=== PATIENT | male | born 1965 | race African-American/Black ===

== ENCOUNTER 2017-08-15 08:48 | Inpatient (IN) | payer MEDICAID ==
[~2017-08-15] VITALS: Ht 177.8 cm; Wt 129.3 kg
[~2017-08-15 08:48] MED LIST: AMLO5TAB88 PO; ASPI-1159 PO; CARV25TA47 PO; FURO40TA5 PO; HYDR100T26 PO
[2017-08-15 09:26] LABS: BASOPHILS % 0.5 % (0.0-2.0); EOSINOPHILS % 1.7 % (0.0-5.0); HEMATOCRIT. 40.8 % (42.0-52.0); HEMOGLOBIN. 13.3 g/dL (14.0-18.0); LYMPHOCYTES % 16.9 % (20.0-50.0); MEAN CORPUSCULAR HEMOGLOBIN 26.6 pg (28.0-32.0); MEAN CORPUSCULAR VOLUME 81.9 fL (80.0-94.0); MEAN PLATELET VOLUME 8.4 fl (7.4-10.4); MONOCYTES % 5.3 % (2.0-8.0); NEUTROPHILS % 75.6 % (40.0-76.0); PLATELET 255 x1000/uL (130-400); RED BLOOD CELL COUNT 4.98 mill/uL (4.7-6.1); RED CELL DISTRIBUTION WIDTH 17.4 % (11.6-14.6)
[2017-08-15 09:31] LABS: PROTHROMBIN TIME 10.7 sec (9.4-11.6)
[2017-08-15 09:52] LABS: CARBON DIOXIDE 29 mEq/L (21-32); CHLORIDE 104 mEq/L (98-107); TROPONIN I < 0.02 ng/mL (0.00-0.04)
[2017-08-15] MEDS ORDERED: POTASSIUM CHLORIDE 20MEQ TABLET SR PO ONE (10:00)
[2017-08-15] MEDS ORDERED: ASPIRIN 81MG TABLET PO ONE (10:00)
[2017-08-15] MEDS ORDERED: FUROSEMIDE 40MG/4ML VIAL IV ONE (10:00)
[2017-08-15] MEDS ORDERED: NA PHOS,M-B/NA PHOS,DI-BA ENEMA 118ML PR PRN (10:45)
[2017-08-15] MEDS ORDERED: DOCUSATE SODIUM 100MG CAPSULE PO PRN (10:45)
[2017-08-15] MEDS ORDERED: MORPHINE SULFATE 4 MG/ML CPJ (NOT FOR IM USE) IV PRN (10:45)
[2017-08-15] MEDS ORDERED: HYDROCODONE/ACETAMINOPHEN 5/325MG TABLET PO PRN (10:45)
[2017-08-15] MEDS ORDERED: ACETAMINOPHEN 325MG TABLET PO PRN (10:45)
[2017-08-15] MEDS ORDERED: ONDANSETRON HCL 4MG/2ML VIAL IV PRN (10:45)
[2017-08-15] MEDS ORDERED: GUAIFENESIN 200MG/10ML SUGAR FREE UDC PO PRN (10:45)
[2017-08-15] MEDS ORDERED: MAGNESIUM/ALUMINUM HYDROXIDE/SIMETHICONE 30ML UDC PO PRN (10:45)
[2017-08-15] MEDS ORDERED: DIPHENHYDRAMINE 50MG/ML VIAL IV PRN (10:45)
[2017-08-15] MEDS: CLONIDINE 0.1MG TABLET PO PRN (12:32)
[2017-08-15] MEDS ORDERED: CLONIDINE 0.1MG TABLET ONE (12:36)
[2017-08-15] MEDS ORDERED: CARVEDILOL 25MG TABLET PO NR (17:34)
[2017-08-15] MEDS: LOSARTAN POTASSIUM 50 MG TABLET PO SCH (17:45)
[2017-08-15] MEDS: HYDRALAZINE HCL 100MG TABLET PO SCH ×2 (17:45→22:12)
[2017-08-15] MEDS: POTASSIUM CHLORIDE 20MEQ TABLET SR PO SCH (18:22)
[2017-08-15 20:15] VITALS: BP 137/83
[2017-08-15] MEDS ORDERED: ENOXAPARIN 40MG/0.4ML SYR SUBCUT SCH (21:00)
[2017-08-15] MEDS ORDERED: LORAZEPAM 2MG/ML CPJ IV PRN (21:00)
[2017-08-15 21:46] VITALS: BP 137/83
[2017-08-15] MEDS: ENOXAPARIN 30MG/0.3ML SYR SUBCUT SCH (22:12)
[2017-08-15] MEDS: FUROSEMIDE 40MG/4ML VIAL IV SCH (22:12)
[2017-08-16] VITALS (7 sets, daily range): BP systolic 144–185; BP diastolic 86–112
[2017-08-16] MEDS: HYDRALAZINE HCL 100MG TABLET PO SCH ×3 (05:30→22:09)
[2017-08-16 07:29] LABS: BASOPHILS % 0.9 % (0.0-2.0); EOSINOPHILS % 2.1 % (0.0-5.0); HEMOGLOBIN. 13.2 g/dL (14.0-18.0); LYMPHOCYTES % 24.6 % (20.0-50.0); MEAN CORPUSCULAR HEMOGLOBIN 26.7 pg (28.0-32.0); MEAN CORPUSCULAR VOLUME 82.7 fL (80.0-94.0); MEAN PLATELET VOLUME 8.6 fl (7.4-10.4); MONOCYTES % 7.5 % (2.0-8.0); NEUTROPHILS % 64.9 % (40.0-76.0); PLATELET 255 x1000/uL (130-400); RED BLOOD CELL COUNT 4.96 mill/uL (4.7-6.1); RED CELL DISTRIBUTION WIDTH 17.3 % (11.6-14.6)
[2017-08-16 08:46] LABS: CARBON DIOXIDE 29 mEq/L (21-32); CHLORIDE 101 mEq/L (98-107); HDL CHOLESTEROL 47 mg/dL (40-59); LDL CHOLESTEROL 170 mg/dL (5-100); T4 FREE 1.18 ng/dL (0.76-1.46)
[2017-08-16] MEDS ORDERED: FUROSEMIDE 40MG/4ML VIAL IV SCH (09:00)
[2017-08-16] MEDS: FUROSEMIDE 40MG/4ML VIAL IV SCH ×2 (09:09→18:14)
[2017-08-16] MEDS: LOSARTAN POTASSIUM 50 MG TABLET PO SCH (09:14)
[2017-08-16] MEDS: POTASSIUM CHLORIDE 20MEQ TABLET SR PO SCH (09:14)
[2017-08-16] MEDS: ENOXAPARIN 30MG/0.3ML SYR SUBCUT SCH ×2 (09:14→20:51)
[2017-08-16] MEDS: ASPIRIN 81MG EC TABLET PO SCH (09:14)
[2017-08-16] MEDS ORDERED: POTASSIUM CHLORIDE 20MEQ TABLET SR PO NR (12:45)
[2017-08-16 14:38] LABS: *AMPHETAMINES SCREEN URINE NEGATIVE (NEGATIVE); *BARBITURATES SCREEN URINE NEGATIVE (NEGATIVE); *BENZODIAZEPINES SCREEN URINE NEGATIVE (NEGATIVE); *COCAINE SCREEN URINE NEGATIVE (NEGATIVE); CANNABINOID URINE SCREEN NEGATIVE (NEGATIVE); METHADONE URINE SCREEN NEGATIVE (NEGATIVE); OPIATES URINE SCREEN NEGATIVE (NEGATIVE); PHENCYCLIDINE URINE SCREEN NEGATIVE (NEGATIVE)
[2017-08-16] MEDS: IPRATROPIUM/ALBUTEROL 0.5-3(2.5)MG/3ML NEB INH PRN (14:42)
[2017-08-16] MEDS: CLONIDINE 0.1MG TABLET PO PRN ×2 (14:42→20:50)
[2017-08-16] MEDS ORDERED: ATORVASTATIN CALCIUM 40MG TABLET PO SCH (21:00)
[2017-08-17 00:07] VITALS: BP 132/84
[2017-08-17 04:00] VITALS: BP 162/96
[2017-08-17] MEDS: HYDRALAZINE HCL 100MG TABLET PO SCH (05:37)
[2017-08-17] MEDS: IPRATROPIUM/ALBUTEROL 0.5-3(2.5)MG/3ML NEB INH PRN (05:51)
[2017-08-17 07:02] LABS: BASOPHILS % 0.5 % (0.0-2.0); EOSINOPHILS % 1.8 % (0.0-5.0); HEMATOCRIT. 40.5 % (42.0-52.0); HEMOGLOBIN. 13.3 g/dL (14.0-18.0); LYMPHOCYTES % 27.5 % (20.0-50.0); MEAN CORPUSCULAR VOLUME 82.1 fL (80.0-94.0); MONOCYTES % 8.8 % (2.0-8.0); NEUTROPHILS % 61.4 % (40.0-76.0); PLATELET 262 x1000/uL (130-400); RED BLOOD CELL COUNT 4.93 mill/uL (4.7-6.1); RED CELL DISTRIBUTION WIDTH 17.5 % (11.6-14.6)
[2017-08-17 08:00] VITALS: BP 158/102
[2017-08-17 08:08] LABS: CARBON DIOXIDE 30 mEq/L (21-32); CHLORIDE 101 mEq/L (98-107)
[2017-08-17] MEDS: LOSARTAN POTASSIUM 50 MG TABLET PO SCH (08:32)
[2017-08-17] MEDS: ASPIRIN 81MG EC TABLET PO SCH (08:32)
[2017-08-17] MEDS: ENOXAPARIN 30MG/0.3ML SYR SUBCUT SCH (08:33)
[2017-08-17] MEDS: POTASSIUM CHLORIDE 20MEQ TABLET SR PO SCH (08:36)
[2017-08-17] MEDS: FUROSEMIDE 40MG/4ML VIAL IV SCH (09:14)
== END 2017-08-17 10:55 | disposition home or self-care (01) | DRG 133 ==
LOC: ER 08:48 → 7WST 10:30 → ENRESERV 17:23
PROVIDERS: ADMIT Internal Medicine; ATTEND Internal Medicine
DX: J96.00 Acute respiratory failure, unspecified whether with hypoxia or hypercapnia (principal); I50.43 Acute on chronic combined systolic (congestive) and diastolic (congestive) heart failure; E11.65 Type 2 diabetes mellitus with hyperglycemia; E66.2 Morbid (severe) obesity with alveolar hypoventilation; I11.0 Hypertensive heart disease with heart failure; E87.6 Hypokalemia; D64.9 Anemia, unspecified; E78.5 Hyperlipidemia, unspecified; F17.210 Nicotine dependence, cigarettes, uncomplicated; F41.9 Anxiety disorder, unspecified; G47.33 Obstructive sleep apnea (adult) (pediatric); I25.10 Atherosclerotic heart disease of native coronary artery without angina pectoris; F32.9 Major depressive disorder, single episode, unspecified; I25.2 Old myocardial infarction; Z79.82 Long term (current) use of aspirin; Z82.49 Family history of ischemic heart disease and other diseases of the circulatory system; Z91.19 Patient's noncompliance with other medical treatment and regimen; Z86.73 Personal history of transient ischemic attack (TIA), and cerebral infarction without residual deficits; Z79.899 Other long term (current) drug therapy; Z99.81 Dependence on supplemental oxygen; Z68.41 Body mass index [BMI] 40.0-44.9, adult
CPT/HCPCS: 36415; 71045; 80048; 80053; 80061; 80305; 83036; 83735; 83880; 84439; 84443; 84484; 85025; 85610; 93005; 93306; 94640; 94660; 96374; 99285; J1650; J1940; J2060; J7620

== ENCOUNTER 2018-02-13 11:33 | Emergency (ER) | payer MEDICAID ==
[~2018-02-13] VITALS: Ht 172.7 cm; Wt 146.0 kg
[~2018-02-13 11:33] MED LIST changes: -AMLO5TAB88 PO; -FURO40TA5 PO
[2018-02-13] MEDS ORDERED: FURO80TA87 PO (11:56)
[2018-02-13] MEDS ORDERED: AMLO10TA80 PO (11:56)
[2018-02-13 13:08] LABS: BASOPHILS % 0.9 % (0.0-2.0); EOSINOPHILS % 2.4 % (0.0-5.0); HEMATOCRIT. 39.4 % (42.0-52.0); LYMPHOCYTES % 22.8 % (20.0-50.0); MEAN CORPUSCULAR HEMOGLOBIN 27.7 pg (28.0-32.0); MEAN PLATELET VOLUME 8.1 fl (7.4-10.4); MONOCYTES % 7.7 % (2.0-8.0); NEUTROPHILS % 66.2 % (40.0-76.0); PLATELET 287 x1000/uL (130-400); RED BLOOD CELL COUNT 4.69 mill/uL (4.7-6.1); RED CELL DISTRIBUTION WIDTH 17.7 % (11.6-14.6)
[2018-02-13 13:12] LABS: CHLORIDE 103 mEq/L (98-107)
[2018-02-13 13:15] LABS: PROTHROMBIN TIME 10.5 sec (9.4-11.6)
[2018-02-13] MEDS ORDERED: KCL 20MEQ/100ML PREMIX 100 ML IV SCH (14:00)
[2018-02-13] MEDS ORDERED: POTASSIUM CHLORIDE 20MEQ TABLET SR PO ONE (14:00)
[2018-02-13 14:52] LABS: CLARITY URINE CLOUDY (CLEAR); COLOR URINE YELLOW (YELLOW); KETONES URINE NEGATIVE (NEGATIVE); LEUKOCYTE ESTERASE URINE NEGATIVE (NEGATIVE); NITRITE URINE NEGATIVE (NEGATIVE); OCCULT BLOOD URINE NEGATIVE (NEGATIVE); PROTEIN URINE NEGATIVE (NEGATIVE)
[2018-02-13 17:28] LABS: CHLORIDE 105 mEq/L (98-107)
[2018-02-13 19:09] VITALS: BP 148/90
== END 2018-02-13 19:15 | disposition home or self-care (01) ==
LOC: ER 11:33
DX: I11.0 Hypertensive heart disease with heart failure (principal); I50.9 Heart failure, unspecified; E87.6 Hypokalemia; E78.00 Pure hypercholesterolemia, unspecified; I25.2 Old myocardial infarction; F17.200 Nicotine dependence, unspecified, uncomplicated; Z79.82 Long term (current) use of aspirin
CPT/HCPCS: 36415; 71045; 80048; 80053; 81003; 83880; 85025; 85610; 96365; 96366; 99285; J3480

== ENCOUNTER 2018-07-18 07:54 | Inpatient (IN) | payer MEDICAID, OTHER ==
[~2018-07-18] VITALS: Ht 172.7 cm; Wt 145.2 kg
[~2018-07-18 07:54] MED LIST changes: +AMLO10TA80 MT; -CARV25TA47 PO; +HYDR-4135 MT; -HYDR100T26 PO
[2018-07-18] MEDS ORDERED: IPRATROPIUM BROMIDE (0.02%) 0.5MG/2.5ML NEB HHN STA (08:00)
[2018-07-18] MEDS ORDERED: MAGNESIUM 2 G PREMIX 50 ML IV ONE (08:00)
[2018-07-18] MEDS ORDERED: NITROGLYCERIN OINT 1GM/INCH UDPKT TD ONE (08:00)
[2018-07-18] MEDS ORDERED: METHYLPREDNISOLONE SOD SUCC 125 MG/2 ML VIAL IV STA (08:00)
[2018-07-18] MEDS: ALBUTEROL (0.083%) 2.5MG/3ML NEB HHN SCH ×3 (08:10→09:15)
[2018-07-18 09:17] LABS: CHLORIDE 101 mEq/L (98-107)
[2018-07-18 09:31] LABS: PROTHROMBIN TIME 10.3 sec (9.1-11.1)
[2018-07-18 09:45] LABS: BASOPHILS % 0.3 % (0.0-2.0); EOSINOPHILS % 1.5 % (0.0-5.0); HEMATOCRIT. 39.9 % (42.0-52.0); HEMOGLOBIN. 12.8 g/dL (14.0-18.0); LYMPHOCYTES % 11.9 % (20.0-50.0); MEAN CORPUSCULAR HEMOGLOBIN 26.8 pg (28.0-32.0); MEAN CORPUSCULAR VOLUME 83.8 fL (80.0-94.0); MEAN PLATELET VOLUME 9.3 fl (7.4-10.4); MONOCYTES % 5.6 % (2.0-8.0); NEUTROPHILS % 80.7 % (40.0-76.0); PLATELET 249 x1000/uL (130-400); RED BLOOD CELL COUNT 4.77 mill/uL (4.7-6.1); RED CELL DISTRIBUTION WIDTH 18.3 % (11.6-14.6)
[2018-07-18] MEDS ORDERED: POTASSIUM CHLORIDE 20MEQ TABLET SR PO ONE (09:45)
[2018-07-18] MEDS ORDERED: DEXTROSE 50% WATER 50ML SYRINGE IV PRN (10:30)
[2018-07-18 12:57] VITALS: BP 156/96
[2018-07-18] MEDS: INSULIN LISPRO 100 UNITS/ML SUBCUT SCH ×3 (13:04→21:51)
[2018-07-18] MEDS ORDERED: CLON0.1T PO (13:24)
[2018-07-18] MEDS ORDERED: POTA99TA4 PO (13:25)
[2018-07-18] MEDS ORDERED: CARV3.1242 PO (13:25)
[2018-07-18] MEDS ORDERED: FURO-151 PO (13:26)
[2018-07-18] MEDS ORDERED: AZITHROMYCIN 500 MG TABLET PO NR (13:30)
[2018-07-18] MEDS: BLOOD SUGAR DIAGNOSTIC STRIP TEST SCH ×3 (13:32→21:42)
[2018-07-18] MEDS: FUROSEMIDE 40MG/4ML VIAL IVP SCH (13:55)
[2018-07-18 14:00] VITALS: BP 146/75
[2018-07-18] MEDS: CLONIDINE 0.1MG TABLET PO SCH ×2 (14:45→21:43)
[2018-07-18] MEDS: BUDESONIDE 0.5MG/2ML NEB HHN SCH ×2 (15:15→20:18)
[2018-07-18] MEDS: IPRATROPIUM/ALBUTEROL 0.5-3(2.5)MG/3ML NEB HHN PRN (15:15)
[2018-07-18 16:00] VITALS: BP 148/71
[2018-07-18 16:48] LABS: CLARITY URINE CLEAR (CLEAR); COLOR URINE YELLOW (YELLOW); KETONES URINE NEGATIVE (NEGATIVE); LEUKOCYTE ESTERASE URINE NEGATIVE (NEGATIVE); NITRITE URINE NEGATIVE (NEGATIVE); OCCULT BLOOD URINE NEGATIVE (NEGATIVE); PH URINE 5.5 (4.5-8.0); PROTEIN URINE 3+ (NEGATIVE); SPECIFIC GRAVITY URINE 1.025 (1.005-1.030); UROBILINOGEN URINE 0.2 E.U./dL (0.2-1.0)
[2018-07-18 17:28] LABS: *AMPHETAMINES SCREEN URINE NEGATIVE (NEGATIVE); *BARBITURATES SCREEN URINE NEGATIVE (NEGATIVE); *BENZODIAZEPINES SCREEN URINE NEGATIVE (NEGATIVE); *COCAINE SCREEN URINE NEGATIVE (NEGATIVE); METHADONE URINE SCREEN NEGATIVE (NEGATIVE); OPIATES URINE SCREEN NEGATIVE (NEGATIVE)
[2018-07-18 17:29] LABS: CANNABINOID URINE SCREEN PRESUMTIVE POSITIVE (NEGATIVE); PHENCYCLIDINE URINE SCREEN NEGATIVE (NEGATIVE)
[2018-07-18 18:00] VITALS: BP 133/78
[2018-07-18 20:00] VITALS: BP 138/76
[2018-07-18] MEDS: ENOXAPARIN 30MG/0.3ML SYR SUBCUT SCH (21:43)
[2018-07-18] MEDS: HYDRALAZINE HCL 50MG TABLET PO SCH (21:43)
[2018-07-18] MEDS: AMLODIPINE 2.5MG TABLET PO SCH (21:44)
[2018-07-18 22:00] VITALS: BP 129/79
[2018-07-19] VITALS (12 sets, daily range): BP systolic 127–168; BP diastolic 74–106
[2018-07-19] MEDS: CLONIDINE 0.1MG TABLET PO SCH ×3 (05:46→21:05)
[2018-07-19] MEDS: HYDRALAZINE HCL 50MG TABLET PO SCH ×3 (05:47→21:05)
[2018-07-19 06:08] LABS: CHLORIDE 103 mEq/L (98-107)
[2018-07-19 06:21] LABS: BASOPHILS % 0.1 % (0.0-2.0); HEMATOCRIT. 38.2 % (42.0-52.0); HEMOGLOBIN. 12.3 g/dL (14.0-18.0); LYMPHOCYTES % 10.1 % (20.0-50.0); MEAN CORPUSCULAR HEMOGLOBIN 26.8 pg (28.0-32.0); MEAN PLATELET VOLUME 9.6 fl (7.4-10.4); MONOCYTES % 6.2 % (2.0-8.0); NEUTROPHILS % 83.6 % (40.0-76.0); PLATELET 238 x1000/uL (130-400); RED CELL DISTRIBUTION WIDTH 18.6 % (11.6-14.6)
[2018-07-19] MEDS: BLOOD SUGAR DIAGNOSTIC STRIP TEST SCH ×4 (07:32→21:06)
[2018-07-19] MEDS: INSULIN LISPRO 100 UNITS/ML SUBCUT SCH ×4 (07:49→21:00)
[2018-07-19] MEDS: AZITHROMYCIN 250 MG TABLET PO SCH (08:21)
[2018-07-19] MEDS: AMLODIPINE 2.5MG TABLET PO SCH ×2 (08:21→21:05)
[2018-07-19] MEDS: FUROSEMIDE 40MG/4ML VIAL IVP SCH (08:21)
[2018-07-19] MEDS: ENOXAPARIN 30MG/0.3ML SYR SUBCUT SCH (08:21)
[2018-07-19] MEDS: BUDESONIDE 0.5MG/2ML NEB HHN SCH ×2 (08:39→21:37)
[2018-07-19] MEDS: IPRATROPIUM/ALBUTEROL 0.5-3(2.5)MG/3ML NEB HHN PRN ×3 (08:39→21:38)
[2018-07-19] MEDS ORDERED: POTASSIUM CHLORIDE 20MEQ TABLET SR PO NR (11:45)
[2018-07-19] MEDS ORDERED: BENZONATATE 100MG CAPSULE PO PRN (17:00)
[2018-07-19] MEDS: ENOXAPARIN 40MG/0.4ML SYR SUBCUT SCH (21:04)
[2018-07-20] VITALS (11 sets, daily range): BP systolic 133–166; BP diastolic 68–110
[2018-07-20] MEDS: IPRATROPIUM/ALBUTEROL 0.5-3(2.5)MG/3ML NEB HHN PRN ×4 (05:41→16:29)
[2018-07-20] MEDS: CLONIDINE 0.1MG TABLET PO SCH ×2 (05:52→14:00)
[2018-07-20] MEDS: HYDRALAZINE HCL 50MG TABLET PO SCH ×2 (05:52→14:00)
[2018-07-20] MEDS: BLOOD SUGAR DIAGNOSTIC STRIP TEST SCH ×2 (07:30→12:30)
[2018-07-20] MEDS: INSULIN LISPRO 100 UNITS/ML SUBCUT SCH ×2 (08:00→13:00)
[2018-07-20] MEDS: BUDESONIDE 0.5MG/2ML NEB HHN SCH (08:16)
[2018-07-20] MEDS: FUROSEMIDE 40MG/4ML VIAL IVP SCH (09:00)
[2018-07-20] MEDS: AZITHROMYCIN 250 MG TABLET PO SCH (09:00)
[2018-07-20] MEDS: AMLODIPINE 2.5MG TABLET PO SCH (09:01)
[2018-07-20] MEDS: ENOXAPARIN 40MG/0.4ML SYR SUBCUT SCH (09:02)
[2018-07-20 09:56] LABS: BASOPHILS % 0.3 % (0.0-2.0); EOSINOPHILS % 0.3 % (0.0-5.0); HEMOGLOBIN. 13.4 g/dL (14.0-18.0); LYMPHOCYTES % 13.7 % (20.0-50.0); MEAN CORPUSCULAR HEMOGLOBIN 27.1 pg (28.0-32.0); MEAN CORPUSCULAR VOLUME 82.9 fL (80.0-94.0); MEAN PLATELET VOLUME 9.3 fl (7.4-10.4); MONOCYTES % 9.1 % (2.0-8.0); NEUTROPHILS % 76.6 % (40.0-76.0); PLATELET 239 x1000/uL (130-400); RED BLOOD CELL COUNT 4.94 mill/uL (4.7-6.1)
[2018-07-20 10:09] LABS: CHLORIDE 101 mEq/L (98-107)
== END 2018-07-20 18:30 | disposition home or self-care (01) | DRG 469 ==
LOC: ER 08:06 → 5EST 09:46 → EDBEDREQ 09:49 → ENRESERV 10:04
PROVIDERS: ADMIT Internal Medicine; ATTEND Internal Medicine
PROC: 5A09357 Assistance with Respiratory Ventilation, Less than 24 Consecutive Hours, Continuous Positive Airway Pressure (ICD-10-PCS; principal; 2018-07-18)
PROC: 5A09357 Assistance with Respiratory Ventilation, Less than 24 Consecutive Hours, Continuous Positive Airway Pressure (ICD-10-PCS; 2018-07-19)
PROC: 5A09357 Assistance with Respiratory Ventilation, Less than 24 Consecutive Hours, Continuous Positive Airway Pressure (ICD-10-PCS; 2018-07-20)
DX: N17.9 Acute kidney failure, unspecified (principal); J96.00 Acute respiratory failure, unspecified whether with hypoxia or hypercapnia; I50.43 Acute on chronic combined systolic (congestive) and diastolic (congestive) heart failure; E44.0 Moderate protein-calorie malnutrition; E87.2 Acidosis; J44.1 Chronic obstructive pulmonary disease with (acute) exacerbation; E11.9 Type 2 diabetes mellitus without complications; D64.9 Anemia, unspecified; I11.0 Hypertensive heart disease with heart failure; Z68.42 Body mass index [BMI] 45.0-49.9, adult; E87.6 Hypokalemia; E66.9 Obesity, unspecified; G47.33 Obstructive sleep apnea (adult) (pediatric); D72.829 Elevated white blood cell count, unspecified; I25.10 Atherosclerotic heart disease of native coronary artery without angina pectoris; F17.210 Nicotine dependence, cigarettes, uncomplicated; E78.5 Hyperlipidemia, unspecified; Z95.5 Presence of coronary angioplasty implant and graft; Z86.74 Personal history of sudden cardiac arrest; I25.2 Old myocardial infarction
CPT/HCPCS: 36415; 71045; 80048; 80305; 82962; 83605; 83880; 84484; 87070; 87077; 87186; 87804; 93005; 94640; 94660; 96374; 99285; J1650; J1815; J1940; J2930; J3475; J7050; J7611; J7620; J7626

== ENCOUNTER 2018-12-12 00:55 | Inpatient (IN) | payer MEDICAID ==
[~2018-12-12] VITALS: Ht 172.7 cm; Wt 144.7 kg
[~2018-12-12 00:55] MED LIST changes: +CLON0.1T PO; +FURO-151 PO
[2018-12-12] MEDS ORDERED: IPRATROPIUM BROMIDE (0.02%) 0.5MG/2.5ML NEB HHN STA (01:40)
[2018-12-12] MEDS ORDERED: ALBUTEROL (0.083%) 2.5MG/3ML NEB HHN STA (01:40)
[2018-12-12] MEDS ORDERED: PREDNISONE 20MG TABLET PO STA (01:40)
[2018-12-12 02:41] LABS: BASOPHILS % 0.7 % (0.0-2.0); EOSINOPHILS % 1.1 % (0.0-5.0); HEMATOCRIT. 40.1 % (42.0-52.0); HEMOGLOBIN. 13.1 g/dL (14.0-18.0); LYMPHOCYTES % 15.3 % (20.0-50.0); MEAN CORPUSCULAR HEMOGLOBIN 27.3 pg (28.0-32.0); MEAN CORPUSCULAR VOLUME 83.7 fL (80.0-94.0); MEAN PLATELET VOLUME 8.4 fl (7.4-10.4); MONOCYTES % 6.4 % (2.0-8.0); NEUTROPHILS % 76.5 % (40.0-76.0); PLATELET 261 x1000/uL (130-400); RED BLOOD CELL COUNT 4.79 mill/uL (4.7-6.1); RED CELL DISTRIBUTION WIDTH 19.6 % (11.6-14.6)
[2018-12-12 02:50] LABS: CHLORIDE 103 mEq/L (98-107)
[2018-12-12 08:00] VITALS: BP 131/82
[2018-12-12 08:40] VITALS: BP 160/92
[2018-12-12] MEDS ORDERED: CLONIDINE 0.1MG TABLET PO PRN (08:45)
[2018-12-12] MEDS ORDERED: GUAIFENESIN 200MG/10ML SUGAR FREE UDC PO PRN (08:45)
[2018-12-12] MEDS ORDERED: ENOXAPARIN 40MG/0.4ML SYR SUBCUT SCH (08:45)
[2018-12-12] MEDS ORDERED: MAGNESIUM/ALUMINUM HYDROXIDE/SIMETHICONE 30ML UDC PO PRN (08:45)
[2018-12-12] MEDS ORDERED: DIPHENHYDRAMINE 50MG/ML VIAL IV PRN (08:45)
[2018-12-12] MEDS ORDERED: DOCUSATE SODIUM 100MG CAPSULE PO PRN (08:45)
[2018-12-12] MEDS ORDERED: IPRATROPIUM/ALBUTEROL 0.5-3(2.5)MG/3ML NEB INH PRN (08:45)
[2018-12-12] MEDS ORDERED: ACETAMINOPHEN 325MG TABLET PO PRN (08:45)
[2018-12-12] MEDS ORDERED: HYDROCODONE/ACETAMINOPHEN 5/325MG TABLET PO PRN (08:45)
[2018-12-12] MEDS ORDERED: ONDANSETRON HCL 4MG/2ML INJ IV PRN (08:45)
[2018-12-12] MEDS ORDERED: POTASSIUM CHLORIDE 20MEQ TABLET SR PO SCH (09:15)
[2018-12-12] MEDS: ENOXAPARIN 40MG/0.4ML SYR SUBCUT SCH ×2 (09:35→20:09)
[2018-12-12] MEDS: LOSARTAN POTASSIUM 50 MG TABLET PO SCH (11:47)
[2018-12-12 12:00] VITALS: BP 131/82
[2018-12-12] MEDS: DILTIAZEM HCL 60MG TABLET PO SCH ×2 (12:49→18:17)
[2018-12-12 16:00] VITALS: BP 116/83
[2018-12-12] MEDS: THIAMINE HCL 100MG TABLET PO SCH (16:44)
[2018-12-12] MEDS: FOLIC ACID 1MG TABLET PO SCH (16:44)
[2018-12-12] MEDS: MULTIVITAMINS,THER W-MINERALS TABLET PO SCH (16:44)
[2018-12-12 17:28] LABS: CREATINE KINASE MB FRACTION 1.9 ng/mL (0.5-3.6)
[2018-12-12 17:53] LABS: *AMPHETAMINES SCREEN URINE NEGATIVE (NEGATIVE); *BARBITURATES SCREEN URINE NEGATIVE (NEGATIVE)
[2018-12-12 17:54] LABS: *BENZODIAZEPINES SCREEN URINE NEGATIVE (NEGATIVE); *COCAINE SCREEN URINE NEGATIVE (NEGATIVE); CANNABINOID URINE SCREEN PRESUMTIVE POSITIVE (NEGATIVE); METHADONE URINE SCREEN NEGATIVE (NEGATIVE); OPIATES URINE SCREEN NEGATIVE (NEGATIVE); PHENCYCLIDINE URINE SCREEN NEGATIVE (NEGATIVE)
[2018-12-12 20:00] VITALS: BP 144/87
[2018-12-12] MEDS: GUAIFENESIN 600MG ER TABLET PO SCH (20:07)
[2018-12-12] MEDS: BUDESONIDE 0.5MG/2ML NEB HHN SCH (21:47)
[2018-12-12] MEDS: IPRATROPIUM/ALBUTEROL 0.5-3(2.5)MG/3ML NEB HHN SCH (21:48)
[2018-12-12] MEDS ORDERED: DEXTROSE 50% WATER 50ML SYRINGE IV PRN (22:00)
[2018-12-13] VITALS: BP 132/81
[2018-12-13] MEDS: DILTIAZEM HCL 60MG TABLET PO SCH ×2 (00:10→05:48)
[2018-12-13 00:18] LABS: CREATINE KINASE MB FRACTION 1.7 ng/mL (0.5-3.6)
[2018-12-13] MEDS: IPRATROPIUM/ALBUTEROL 0.5-3(2.5)MG/3ML NEB HHN SCH ×3 (03:03→14:04)
[2018-12-13 04:00] VITALS: BP 146/90
[2018-12-13 06:21] LABS: BASOPHILS % 0.6 % (0.0-2.0); EOSINOPHILS % 0.7 % (0.0-5.0); HEMOGLOBIN. 13.3 g/dL (14.0-18.0); LYMPHOCYTES % 22.2 % (20.0-50.0); MEAN CORPUSCULAR HEMOGLOBIN 27.4 pg (28.0-32.0); MEAN CORPUSCULAR VOLUME 84.7 fL (80.0-94.0); MEAN PLATELET VOLUME 8.5 fl (7.4-10.4); MONOCYTES % 7.9 % (2.0-8.0); NEUTROPHILS % 68.6 % (40.0-76.0); PLATELET 255 x1000/uL (130-400); RED BLOOD CELL COUNT 4.84 mill/uL (4.7-6.1); RED CELL DISTRIBUTION WIDTH 20.1 % (11.6-14.6)
[2018-12-13] MEDS: INSULIN LISPRO 100 UNITS/ML SUBCUT SCH ×2 (06:25→12:05)
[2018-12-13] MEDS: BLOOD SUGAR DIAGNOSTIC STRIP TEST SCH ×2 (06:25→12:04)
[2018-12-13 06:46] LABS: CHLORIDE 102 mEq/L (98-107)
[2018-12-13 07:03] LABS: LDL CHOLESTEROL 124 mg/dL (5-100)
[2018-12-13 07:04] LABS: HDL CHOLESTEROL 58 mg/dL (40-59)
[2018-12-13] MEDS: BUDESONIDE 0.5MG/2ML NEB HHN SCH (07:23)
[2018-12-13 08:02] VITALS: BP 141/89
[2018-12-13] MEDS: LOSARTAN POTASSIUM 50 MG TABLET PO SCH (08:13)
[2018-12-13] MEDS: ENOXAPARIN 40MG/0.4ML SYR SUBCUT SCH (08:13)
[2018-12-13] MEDS: GUAIFENESIN 600MG ER TABLET PO SCH (08:13)
[2018-12-13] MEDS: FOLIC ACID 1MG TABLET PO SCH (08:13)
[2018-12-13] MEDS: THIAMINE HCL 100MG TABLET PO SCH (08:13)
[2018-12-13] MEDS: MULTIVITAMINS,THER W-MINERALS TABLET PO SCH (08:43)
[2018-12-13] MEDS ORDERED: FUROSEMIDE 40MG/4ML VIAL IVP NR (11:45)
[2018-12-13 12:00] VITALS: BP 144/64
[2018-12-13] MEDS ORDERED: POTASSIUM CHLORIDE 20MEQ TABLET SR PO NR ×2 (12:30)
[2018-12-13] MEDS ORDERED: SEREDK ORI (13:10)
[2018-12-13] MEDS ORDERED: GUAI600T44 PO (13:10)
[2018-12-13] MEDS ORDERED: LOSA50TA3 PO (13:10)
[2018-12-13] MEDS ORDERED: DILT90TA2 PO (13:10)
[2018-12-13] MEDS ORDERED: THIA100T72 PO (13:10)
[2018-12-13] MEDS ORDERED: FOLI-43 PO (13:10)
[2018-12-13] MEDS ORDERED: ATOR20TA65 MT (13:10)
[2018-12-13 13:56] VITALS: BP 144/64
[2018-12-13] MEDS ORDERED: DILTIAZEM HCL 90MG TABLET PO SCH (14:00)
[2018-12-13 16:00] VITALS: BP 154/93
[2018-12-25] MEDS ORDERED: DILT60TA35 MT (12:08)
[2018-12-25] MEDS ORDERED: ASPI-1159 PO (12:08)
[2018-12-25] MEDS ORDERED: FURO-151 MT (12:08)
== END 2018-12-13 17:35 | disposition home or self-care (01) | DRG 140 ==
LOC: ER 00:55 → 8WST 04:41 → EDBEDREQTM 04:49 → EDBEDREQ 04:49 → ENRESERV 07:21
PROVIDERS: ADMIT Internal Medicine; ATTEND Internal Medicine
PROC: 5A09357 Assistance with Respiratory Ventilation, Less than 24 Consecutive Hours, Continuous Positive Airway Pressure (ICD-10-PCS; principal; 2018-12-13)
DX: J44.1 Chronic obstructive pulmonary disease with (acute) exacerbation (principal); J96.00 Acute respiratory failure, unspecified whether with hypoxia or hypercapnia; I50.33 Acute on chronic diastolic (congestive) heart failure; J84.9 Interstitial pulmonary disease, unspecified; I11.0 Hypertensive heart disease with heart failure; F17.200 Nicotine dependence, unspecified, uncomplicated; I10 Essential (primary) hypertension; G47.33 Obstructive sleep apnea (adult) (pediatric); R73.9 Hyperglycemia, unspecified; F12.90 Cannabis use, unspecified, uncomplicated; E87.6 Hypokalemia; I25.10 Atherosclerotic heart disease of native coronary artery without angina pectoris; E66.01 Morbid (severe) obesity due to excess calories; F10.20 Alcohol dependence, uncomplicated; D64.9 Anemia, unspecified; E78.5 Hyperlipidemia, unspecified; Z95.5 Presence of coronary angioplasty implant and graft; Z79.82 Long term (current) use of aspirin; Z68.42 Body mass index [BMI] 45.0-49.9, adult; Z79.899 Other long term (current) drug therapy; Z86.73 Personal history of transient ischemic attack (TIA), and cerebral infarction without residual deficits
CPT/HCPCS: 36415; 71045; 80061; 80305; 82550; 82553; 82962; 83036; 83605; 83735; 83880; 84100; 84443; 84484; 93005; 93306; 93970; 94640; 97162; 97166; 99285; J1650; J1940; J7512; J7611; J7620; J7626

== ENCOUNTER 2018-12-26 21:50 | Inpatient (IN) | payer MEDICAID ==
[~2018-12-26] VITALS: Ht 167.6 cm; Wt 143.1 kg
[~2018-12-26 21:50] MED LIST changes: -AMLO10TA80 MT; -ASPI-1159 PO; +ASPI-1393 PO; +ATOR20TA65 MT; -CLON0.1T PO; +DILT60TA35 MT; +DILT90TA2 PO; +FOLI-43 PO; +FURO-151 MT; +GUAI600T44 PO; -HYDR-4135 MT; +LOSA50TA3 PO; +SEREDK ORI; +THIA100T72 PO
[2018-12-26] MEDS ORDERED: METHYLPREDNISOLONE SOD SUCC 125 MG/2 ML VIAL IV STA (21:58)
[2018-12-26] MEDS ORDERED: ALBUTEROL (0.083%) 2.5MG/3ML NEB HHN STA (21:58)
[2018-12-26] MEDS ORDERED: IPRATROPIUM BROMIDE (0.02%) 0.5MG/2.5ML NEB HHN STA (21:58)
[2018-12-26] MEDS ORDERED: NITROGLYCERIN OINT 1GM/INCH UDPKT TD ONE (22:00)
[2018-12-26] MEDS ORDERED: ASPIRIN 81MG TABLET PO ONE (22:00)
[2018-12-26] MEDS ORDERED: FUROSEMIDE 40MG/4ML VIAL IV ONE (22:00)
[2018-12-26 22:29] LABS: BG BASE EXCESS 2.6 mmol/L (-2.0-2.0); BG BILEVEL POS AIRWAY PRESSURE 15/5; BG DEOXYHEMOGLOBIN 3.5 % (0.0-5.0); BG FRACTION INSPIRED OXYGEN 100; BG METHEMOGLOBIN 0.3 % (0.0-1.5); BG OXYGEN SATURATION 96.5 % (92.0-98.5); BG OXYHEMOGLOBIN 95.2 % (94.0-97.0); BG PCO2 46.4 mmHg (35.0-45.0); BG PH 7.399 (7.350-7.450); BG PO2 92.6 mmHg (75.0-100.0); BG SAMPLE SITE LEFT RADIAL; BG TOTAL HEMOGLOBIN 13.3 g/dL (12.0-18.0); BG VENT MODE MASK - BIPAP; BG VENT RATE 15 set
[2018-12-26 22:38] LABS: BASOPHILS % 0.3 % (0.0-2.0); EOSINOPHILS % 0.1 % (0.0-5.0); HEMATOCRIT. 39.5 % (42.0-52.0); HEMOGLOBIN. 13.1 g/dL (14.0-18.0); LYMPHOCYTES % 16.1 % (20.0-50.0); MEAN CORPUSCULAR HEMOGLOBIN 28.3 pg (28.0-32.0); MEAN CORPUSCULAR VOLUME 85.1 fL (80.0-94.0); MEAN PLATELET VOLUME 8.7 fl (7.4-10.4); MONOCYTES % 7.5 % (2.0-8.0); PLATELET 261 x1000/uL (130-400); RED BLOOD CELL COUNT 4.65 mill/uL (4.7-6.1); RED CELL DISTRIBUTION WIDTH 19.5 % (11.6-14.6)
[2018-12-26 22:43] LABS: PROTHROMBIN TIME 10.1 sec (9.6-11.0)
[2018-12-26 22:44] LABS: CHLORIDE 101 mEq/L (98-107)
[2018-12-27] VITALS (12 sets, daily range): BP systolic 151–180; BP diastolic 76–125
[2018-12-27] MEDS ORDERED: DIPHENHYDRAMINE 50MG/ML VIAL IV PRN
[2018-12-27] MEDS ORDERED: IPRATROPIUM/ALBUTEROL 0.5-3(2.5)MG/3ML NEB INH PRN
[2018-12-27] MEDS ORDERED: MAGNESIUM/ALUMINUM HYDROXIDE/SIMETHICONE 30ML UDC PO PRN
[2018-12-27] MEDS ORDERED: POTASSIUM CHLORIDE 20MEQ TABLET SR PO SCH
[2018-12-27] MEDS ORDERED: LORAZEPAM 2MG/ML CPJ IV PRN
[2018-12-27] MEDS ORDERED: CLONIDINE 0.1MG TABLET PO PRN
[2018-12-27] MEDS ORDERED: NA PHOS,M-B/NA PHOS,DI-BA ENEMA 118ML PR PRN
[2018-12-27] MEDS ORDERED: HYDROMORPHONE HCL/PF 2MG/ML CPJ IV PRN
[2018-12-27] MEDS ORDERED: DOCUSATE SODIUM 100MG CAPSULE PO PRN
[2018-12-27] MEDS ORDERED: HYDROCODONE/ACETAMINOPHEN 10/325MG TABLET PO PRN
[2018-12-27] MEDS ORDERED: GUAIFENESIN 200MG/10ML SUGAR FREE UDC PO PRN
[2018-12-27] MEDS ORDERED: ONDANSETRON HCL 4MG/2ML INJ IV PRN
[2018-12-27] MEDS ORDERED: ACETAMINOPHEN 325MG TABLET PO PRN
[2018-12-27] MEDS ORDERED: ENOXAPARIN 40MG/0.4ML SYR SUBCUT SCH
[2018-12-27] MEDS ORDERED: LEVOFLOXACIN 500MG PREMIX 100 ML IV SCH (02:00)
[2018-12-27] MEDS: IPRATROPIUM/ALBUTEROL 0.5-3(2.5)MG/3ML NEB INH SCH ×5 (04:14→21:13)
[2018-12-27] MEDS: SODIUM CHLORIDE 0.9% INJ 3ML FLUSH IVF SCH ×3 (06:00→22:00)
[2018-12-27 08:51] LABS: HEMOGLOBIN. 12.8 g/dL (14.0-18.0); MEAN CORPUSCULAR HEMOGLOBIN 28.5 pg (28.0-32.0); MEAN CORPUSCULAR VOLUME 84.7 fL (80.0-94.0); MEAN PLATELET VOLUME 8.5 fl (7.4-10.4); PLATELET 247 x1000/uL (130-400); RED BLOOD CELL COUNT 4.49 mill/uL (4.7-6.1); RED CELL DISTRIBUTION WIDTH 19.6 % (11.6-14.6)
[2018-12-27] MEDS: ASPIRIN 81MG EC TABLET PO SCH (08:54)
[2018-12-27] MEDS: FUROSEMIDE 40MG/4ML VIAL IV SCH (08:54)
[2018-12-27] MEDS: ENOXAPARIN 40MG/0.4ML SYR SUBCUT SCH ×2 (08:54→21:30)
[2018-12-27 08:58] LABS: CHLORIDE 102 mEq/L (98-107)
[2018-12-27 09:08] LABS: LDL CHOLESTEROL 95 mg/dL (5-100); T4 FREE 1.03 ng/dL (0.76-1.46)
[2018-12-27 09:09] LABS: CREATINE KINASE 317 IU/L (39-308); CREATINE KINASE MB FRACTION 3.8 ng/mL (0.5-3.6); HDL CHOLESTEROL 76 mg/dL (40-59)
[2018-12-27 13:49] LABS: PLATELET ESTIMATE NORMAL
[2018-12-27] MEDS: BUDESONIDE 0.5MG/2ML NEB HHN SCH (16:19)
[2018-12-27] MEDS: HYDRALAZINE 20MG/ML VIAL IV PRN (16:19)
[2018-12-27 19:01] LABS: CREATINE KINASE MB FRACTION 2.5 ng/mL (0.5-3.6)
[2018-12-27] MEDS: LEVOFLOXACIN 500MG PREMIX 100 ML IV SCH (21:32)
[2018-12-28] VITALS (14 sets, daily range): BP systolic 131–170; BP diastolic 71–115
[2018-12-28] MEDS: BUDESONIDE 0.5MG/2ML NEB HHN SCH ×3 (00:25→19:39)
[2018-12-28] MEDS: IPRATROPIUM/ALBUTEROL 0.5-3(2.5)MG/3ML NEB INH SCH ×4 (00:25→19:36)
[2018-12-28] MEDS: FUROSEMIDE 40MG/4ML VIAL IV SCH (08:19)
[2018-12-28] MEDS: ASPIRIN 81MG EC TABLET PO SCH (08:20)
[2018-12-28] MEDS: FOLIC ACID 1MG TABLET PO SCH (08:20)
[2018-12-28] MEDS: ENOXAPARIN 40MG/0.4ML SYR SUBCUT SCH ×2 (08:20→20:31)
[2018-12-28] MEDS: MULTIVITAMINS,THER W-MINERALS TABLET PO SCH (08:20)
[2018-12-28] MEDS: THIAMINE HCL 100MG TABLET PO SCH (08:34)
[2018-12-28] MEDS: HYDRALAZINE 20MG/ML VIAL IV PRN ×2 (09:30→18:19)
[2018-12-28] MEDS: LOSARTAN POTASSIUM 50 MG TABLET PO SCH (12:37)
[2018-12-28] MEDS ORDERED: CLONIDINE 0.2MG TABLET PO PRN (13:00)
[2018-12-28] MEDS: DILTIAZEM HCL 60MG TABLET PO SCH (17:00)
[2018-12-28] MEDS: GUAIFENESIN 600MG ER TABLET PO SCH (20:31)
[2018-12-28] MEDS: LEVOFLOXACIN 500MG PREMIX 100 ML IV SCH (20:32)
[2018-12-29] VITALS (8 sets, daily range): BP systolic 141–170; BP diastolic 79–100
[2018-12-29] MEDS: IPRATROPIUM/ALBUTEROL 0.5-3(2.5)MG/3ML NEB INH SCH ×3 (00:50→08:59)
[2018-12-29] MEDS: SODIUM CHLORIDE 0.9% INJ 3ML FLUSH IVF SCH (06:00)
[2018-12-29] MEDS: DILTIAZEM HCL 60MG TABLET PO SCH (06:22)
[2018-12-29] MEDS: BUDESONIDE 0.5MG/2ML NEB HHN SCH (08:59)
[2018-12-29] MEDS: ENOXAPARIN 40MG/0.4ML SYR SUBCUT SCH (09:55)
[2018-12-29] MEDS: LOSARTAN POTASSIUM 50 MG TABLET PO SCH (09:55)
[2018-12-29] MEDS: FUROSEMIDE 40MG/4ML VIAL IV SCH (09:55)
[2018-12-29] MEDS: ASPIRIN 81MG EC TABLET PO SCH (09:55)
[2018-12-29] MEDS: FOLIC ACID 1MG TABLET PO SCH (09:56)
[2018-12-29] MEDS: MULTIVITAMINS,THER W-MINERALS TABLET PO SCH (09:56)
[2018-12-29] MEDS: GUAIFENESIN 600MG ER TABLET PO SCH (10:03)
[2018-12-29] MEDS: THIAMINE HCL 100MG TABLET PO SCH (10:04)
[2019-01-20] MEDS ORDERED: ZOLP10TA2 PO (02:54)
[2019-01-25] MEDS ORDERED: IPRA3AMP9 HHN (14:13)
== END 2018-12-29 13:17 | disposition home or self-care (01) | DRG 194 ==
LOC: ER 22:10 → 5EST 22:55 → EDBEDREQSVC 22:57 → EDBEDREQTM 22:57 → EDBEDREQ 22:57 → ENRESERV 23:28
PROVIDERS: ADMIT Internal Medicine; ATTEND Internal Medicine
PROC: 5A09357 Assistance with Respiratory Ventilation, Less than 24 Consecutive Hours, Continuous Positive Airway Pressure (ICD-10-PCS; principal; 2018-12-26)
PROC: 5A09357 Assistance with Respiratory Ventilation, Less than 24 Consecutive Hours, Continuous Positive Airway Pressure (ICD-10-PCS; 2018-12-27)
PROC: 5A09357 Assistance with Respiratory Ventilation, Less than 24 Consecutive Hours, Continuous Positive Airway Pressure (ICD-10-PCS; 2018-12-28)
PROC: 5A09357 Assistance with Respiratory Ventilation, Less than 24 Consecutive Hours, Continuous Positive Airway Pressure (ICD-10-PCS; 2018-12-29)
DX: I11.0 Hypertensive heart disease with heart failure (principal); J96.00 Acute respiratory failure, unspecified whether with hypoxia or hypercapnia; E66.01 Morbid (severe) obesity due to excess calories; Z68.43 Body mass index [BMI] 50.0-59.9, adult; G47.33 Obstructive sleep apnea (adult) (pediatric); I50.33 Acute on chronic diastolic (congestive) heart failure; J44.9 Chronic obstructive pulmonary disease, unspecified; I25.10 Atherosclerotic heart disease of native coronary artery without angina pectoris; D64.9 Anemia, unspecified; F10.20 Alcohol dependence, uncomplicated; Z79.82 Long term (current) use of aspirin; Z79.899 Other long term (current) drug therapy; Z87.891 Personal history of nicotine dependence; Z95.5 Presence of coronary angioplasty implant and graft
CPT/HCPCS: 36415; 36600; 71045; 80061; 82375; 82550; 82553; 82805; 83605; 83880; 84439; 84443; 84484; 87804; 93005; 94640; 94660; 96374; 99285; J0360; J1650; J1940; J1956; J2930; J7050; J7611; J7620; J7626